=== PATIENT | female | born 1995 | race African-American/Black ===

== ENCOUNTER 2018-02-22 14:23 | Inpatient (IN) ==
[2018-02-22] MEDS ORDERED: Non-Formulary Drug (Nitrofurantoin Macrocrystal [Nitrofurantoin Macrocrystal] 100 MG) PO SCH (15:45)
[2018-02-22] MEDS ORDERED: Gentamicin/NS 80 mg Premix 100 ML IV.SIG SCH (16:00)
[2018-02-22] MEDS ORDERED: Acetaminophen 325 MG Tablet PO PRN (16:01)
[2018-02-22] MEDS ORDERED: Morphine Inj 4 MG/ML Vial IV.PUSH PRN (16:10)
--- NOTE | 2018-02-22 16:22 | P.HPOB ---
History of Present Illness Primary Care Physician: No Primary Care Physician Chief Complaint: Lower abdominal pain in vaginal bleeding for 2 days History of Present Illness: Patient is a 22-year-old white female at 16 weeks approximately who is referred from [place] [facility] for evaluation of fetus. Patient did not know she was until today when they did test and ultrasound and [place]. The ultrasound there showed a 16 week intrauterine with essentially no amniotic fluid, positive heart rate noted. The patient was seen in the day before for abdominal pain diagnosed with UTI given Macrobid and sent home. Her white count at that time was 20,000 and white blood cell count today was 17.9 with a left shift both times she states her bleeding waxes and wanes from just spotting to a little heavier than that spotting and heavier again. Her last menstrual period was 02/16/18 and she states these are regular. She has not been on control of any kind Weeks Gestation:: 16 Para: 0 : 1 Review of Systems Constitutional: Denies anorexia, Denies body ache(s), Denies chills, Denies daytime sleepiness, Denies excessive sweating, Denies fatigue, Denies fever(s), Denies headache(s), Denies increased appetite, Denies lack of energy, Denies malaise, Denies night sweats, Denies weakness, Denies weight gain, Denies weight loss, Denies other Cardiovascular: Denies bluish discoloration of hand/feet, Denies chest pain, Denies chest pain at rest, Denies chest pain with activity, Denies excessive sweating, Denies fainting, Denies fast heart rate, Denies foot swelling, Denies generalized swelling, Denies irregular heart rhythm, Denies leg pain with activity, Denies leg sores, Denies leg swelling, Denies lightheadedness, Denies radiating jaw, neck or arm pain, Denies rapid, pounding, or irregular heartbeat , Denies shortness of breath, Denies shortness of breath with activity, Denies shortness of breath when lying down, Denies shortness of breath causing sudden awakening, Denies slow heart rate, Denies other Respiratory: Denies change in phlegm color, Denies chest congestion, Denies cough, Denies coughing up blood, Denies excessive phlegm production, Denies pain on inspiration, Denies pain with cough, Denies shortness of breath, Denies shortness of breath with activity, Denies snoring, Denies stridor, Denies wheezing, Denies other Gastrointestinal: Reports abdominal pain, Denies belching, Denies black, tarry stools, Denies bloating, Denies bright, red blood in stools, Denies change in bowel habits, Denies constant urge to pass stool, Denies change in stools, Denies coffee ground vomit, Denies constipation, Denies cramping, Denies difficulty swallowing, Denies excessive passing of gas, Denies feeling full early, Denies heartburn, Denies incontinent of stools, Denies loose stools, Denies nausea, Denies pain with swallowing, Denies vomiting, Denies vomiting blood, Denies other Genitourinary: Reports abnormal vaginal bleeding, Denies abnormal periods, Denies absent period, Denies bleeding between periods, Denies blood in urine, Denies difficulty starting urination, Denies difficulty urinating, Denies dribbling after urination, Denies frequent nighttime urination, Denies genital itching, Denies genital lesions, Denies heavy periods, Denies hot flashes, Denies light periods, Denies nipple discharge, Denies painful intercourse, Denies painful periods, Denies painful urination, Denies pelvic pain, Denies prolapse symptoms, Denies sexual problems, Denies side pain, Denies urinary incontinence, Denies urinary urgency, Denies vaginal discharge, Denies vaginal dryness, Denies vaginal odor, Denies vaginal itching, Denies other Neurologic: Denies abnormal hearing, Denies abnormal movements, Denies abnormal speech, Denies abnormal walking, Denies behavioral changes, Denies burning sensations, Denies confusion, Denies dizziness, Denies fainting, Denies frequent falls, Denies headache(s), Denies lack of coordination, Denies localized weakness, Denies loss of vision, Denies memory loss, Denies numbness, Denies other visual disturbances, Denies radiating pain, Denies restless legs, Denies convulsions, Denies seizure-like activity, Denies sensory deficit, Denies tingling, Denies tingling/numbness/burning sensations, Denies tremor(s), Denies unsteadiness, Denies weakness, Denies other PMFSH - History History Provided By: Patient - Medical History Medical History: Medical History (Last Updated 02/22/18 @ 11:26 by Juany Ross RN) History of cardiac murmur (Acute) History of asthma (Acute) - Surgical History Surgical History: Surgical History (Last Updated 02/22/18 @ 11:26 by Juany Ross RN) No history of previous surgery - Family History Family History: Family History (Last Updated 02/22/18 @ 11:26 by Juany Ross RN) Other Family history of diabetes mellitus - Tobacco History Second Hand Smoke Exposure: No Smoking Status: Never smoker Tobacco Type: Cigarettes - Alcohol History How Often Do You Have a Drink Containing Alcohol: 2 to 4 times a month - Substance Use History Substance History: No History of Abuse - Travel History History of Recent Travel: No Recent Travel in the [place] Within the Last 8 Weeks: No Recent Travel Out of the Country Within the Last 8 Weeks: No Medications and Allergies Active Medications: Active Medications Acetaminophen (Tylenol) 650 mg PO Q4H PRN PRN Reason: PAIN SCALE 1 TO 5 Albuterol (Ventolin Hfa Inh) 2 puff INH Q4H PRN PRN Reason: WHEEZING/SOB Ampicillin Sodium (Ampicillin Inj) 2,000 mg IV.PUSH Q6H TOMAS Lactated Ringer's (Lr 1000 Ml Inj) 1,000 mls @ 100 mls/hr IV.CONT .Q10H TOMAS Gentamicin Sulfate/Sodium Chloride (Gentamicin/Ns 80 Mg Premix) 100 mls @ 200 mls/hr IV.SIG Q8H TOMAS Meclizine HCl (Antivert) 25 mg PO DAILY PRN PRN Reason: Dizziness Morphine Sulfate (Morphine Inj) 4 mg IV.PUSH Q4H PRN PRN Reason: ABDOMINAL PAIN Non-Formulary Medication (Nitrofurantoin Macrocrystal [Nitrofurantoin Macrocrystal]) 100 mg PO Q6H TOMAS Ondansetron HCl (Zofran Odt) 4 mg PO Q6H PRN PRN Reason: NAUSEA OR VOMITING Ondansetron HCl (Zofran Inj) 4 mg IV.PUSH Q6H PRN PRN Reason: NAUSEA OR VOMITING Sodium Chloride (Ns Flush) 2 ml IV.FLUSH BID TOMAS Sodium Chloride (Ns Flush) 2 ml IV.FLUSH PRN PRN PRN Reason: FLUSH AFTER USING IV ACCESS Sodium Chloride (Ns Flush) 2 ml IV.FLUSH BID TOMAS Sodium Chloride (Ns Flush) 2 ml IV.FLUSH PRN PRN PRN Reason: FLUSH AFTER USING IV ACCESS Allergies Allergy/AdvReac Type Severity Reaction Status Date / Time No Known Allergies Allergy Verified 02/21/18 15:07 Home Medications Medication Instructions Recorded Confirmed Type albuterol sulfate 2 puff INHALATION Q4-6H PRN 02/21/18 02/22/18 History meclizine 25 mg PO DAILY PRN 02/21/18 02/22/18 History Exam Vital signs: Vital Signs 02/22/18 15:01 02/22/18 15:04 Temperature 98.2 F Pulse Rate 99 H Respiratory Rate 19 Blood Pressure 133/83 - Constitutional no acute distress - Routine HEENT Exam Head: Present: normocephalic, atraumatic Eye: Present: PERRL - Routine Respiratory Exam Present: accessory muscle use, CTA bilaterally - Routine Cardiovascular Exam Present: RRR, S1, S2 - Routine Abdominal Exam Present: soft, tenderness Comments: Uterine fundus is between symphysis and umbilicus and is minimally tender to palpation - Routine Exam Comments: On pelvic exam there is bloody mucus at the introitus and on the vulva with a washed out appearance to the vagina but no obvious amniotic fluid seen just old blood no active bleeding seen but a moderate amount of old blood noted, too much blood to do an amnio sure The cervix is visualized and then palpated with my examining hand and she is a 1 cm allows 1 finger and through the cervix which is thick but open and could palpate the presenting part which is the head - Routine Neurological Exam Present: alert, oriented X3, CN II-XII intact Results - Imaging Bedside ultrasound done shows a single intrauterine in a cephalic presentation with measurements consistent with 16 weeks 1 day and 152 g. Positive cardiac motion noted. bladder was seen. I could not visualize kidneys. There is marked oligohydramnios only a very small amount of fluid seen. The placenta is anterior and grade 0 and low-lying Caprini VTE Risk Assessment Caprini VTE Risk Assessment: No/Low Risk (score <= 1) Caprini Risk Assessment Model: Point Value = 1 Point Value = 2 Point Value = 3 Point Value = 5 Age 41-60 Minor surgery BMI > 25 kg/m2 Swollen legs Varicose veins or History of unexplained or recurrent spontaneous Oral contraceptives or hormone replacement Sepsis (< 1 month) Serious lung disease, including pneumonia (< 1 month) Abnormal pulmonary function Acute myocardial infarction Congestive heart failure (< 1 month) History of inflammatory bowel disease Medical patient at bed rest Age 61-74 Arthroscopic surgery Major open surgery (> 45 min) Laparoscopic surgery (> 45 min) Malignancy Confined to bed (> 72 hours) Immobilizing plaster cast Central venous access Age >= 75 History of VTE Family history of VTE Factor V Leiden Prothrombin [id number] Lupus anticoagulant Anticardiolipin antibodies Elevated serum homocysteine Heparin-induced thrombocytopenia Other congenital or acquired thrombophilia Stroke (< 1 month) Elective arthroplasty Hip, pelvis, or leg fracture Acute spinal cord injury (< 1 month) Prophylaxis Regimen: Total Risk Factor Score Risk Level Prophylaxis Regimen 0-1 Low Early ambulation 2 Moderate Order ONE of the following: *Sequential Compression Device (SCD) *Heparin 5000 units SQ BID 3-4 Higher Order ONE of the following medications: *Heparin 5000 units SQ TID *Enoxaparin/Lovenox 40 mg SQ daily (WT < 150 kg, CrCl > 30 mL/min) *Enoxaparin/Lovenox 30 mg SQ daily (WT < 150 kg, CrCl > 10-29 mL/min) *Enoxaparin/Lovenox 30 mg SQ BID (WT < 150 kg, CrCl > 30 mL/min) AND/OR *Sequential Compression Device (SCD) 5 or more Highest Order ONE of the following medications: *Heparin 5000 units SQ TID (Preferred with Epidurals) *Enoxaparin/Lovenox 40 mg SQ daily (WT < 150 kg, CrCl > 30 mL/min) *Enoxaparin/Lovenox 30 mg SQ daily (WT < 150 kg, CrCl > 10-29 mL/min) *Enoxaparin/Lovenox 30 mg SQ BID (WT < 150 kg, CrCl > 30 mL/min) AND *Sequential Compression Device (SCD) Assessment and Plan - Diagnosis (1) 16 weeks gestation of Code(s): Z3A.16 - 16 weeks gestation of Status: Acute (2) Oligohydramnios Code(s): O41.00X0 - Oligohydramnios, unspecified trimester, not applicable or unspecified Status: Acute (3) Vaginal bleeding during Code(s): O46.90 - Antepartum hemorrhage, unspecified, unspecified trimester Status: Acute - Plan There is a 16 week intrauterine primiparous presents was with no care and did not even know she was yesterday and presents with an ultrasound finding of essentially no amniotic fluid around baby. Patient denies rupture the membranes are significant leakage that she does describe bleeding significantly over the last 2 days. On exam it she does have blood per vagina and it does look somewhat washed out but I cannot see any draining amniotic fluid. However is quite likely the patient has had PPROM and is beginning to basically miscarry her self with this pain and in bleeding. Plan to start her on IV antibiotics amp and gent watch her overnight see what happens she may well miscarry on her own tomorrow if she is the same probably get another ultrasound and discussed with service
[2018-02-22] MEDS ORDERED: Ampicillin Inj 500 MG Vial IV.PUSH SCH (17:00)
[2018-02-22 17:40] LABS: Amphetamine Urine With Conf Neg (Neg); Benzodiazepine Urine With Conf Neg (Neg)
[2018-02-22 17:57] LABS: Bacteria,Urine Many /hpf; Bilirubin,Urine Negative (Negative); Clarity,Urine Cloudy (Clear); Color,Urine Yellow (Yellw/Straw); Glucose,Urine (UA) Negative (Negative); Leukocyte Esterase,Urine Large (Negative); Mucus,Urine Few /lpf (Occasional); Nitrite,Urine Negative (Negative); Specific Gravity,Urine 1.013 (1.002-1.035); Squamous Epithelial Cell,Urine 2 /hpf (0-5)
--- NOTE | 2018-02-22 20:02 | XR ---
EXAM DATE: 02/22/2018 7:42 PM EDT AGE/SEX: 22 years / Female INDICATIONS: Central line placement. CLINICAL DATA: This is the patient's initial encounter. Patient reports that signs and symptoms have been present for 1 day and indicates a pain score of 0/10. MEDICAL/SURGICAL HISTORY: None. None. COMPARISON: No prior exams available for comparison. FINDINGS: A single AP view of the chest demonstrates the lungs to be symmetrically aerated without evidence of mass, infiltrate or effusion. The cardiomediastinal contours are unremarkable. Osseous structures a re intact. There is a right internal jugular central venous line with the tip projected over the sup erior vena cava. There is no pneumothorax. CONCLUSION: Right internal jugular central venous line with no pneumothorax. Electronically signed by: Demarco Vogel MD 02/22/2018 8:00 PM EDT
[2018-02-22 20:27] LABS: Baso % (Auto) 0.2 % (0.0-2.0); Eos # (Auto) 0.1 th/mm3 (0.0-0.4); Eos % (Auto) 0.3 % (0.0-4.0); Hematocrit 29.4 % (35.0-46.0); Hemoglobin 8.9 gm/dL (11.6-15.3); Lymph # (Auto) 2.4 th/mm3 (1.0-4.8); Lymph % (Auto) 12.5 % (9.0-44.0); Mean Corpuscular Hemoglobin 19.6 pg (27.0-34.0); Mean Corpuscular Volume 64.8 fL (80.0-100.0); Mean Platelet Volume 9.3 fL (7.0-11.0); Mono # (Auto) 0.9 th/mm3 (0.0-0.9); Mono % (Auto) 4.6 % (0.0-8.0); Neut # (Auto) 15.8 th/mm3 (1.8-7.7); Neut % (Auto) 82.4 % (16.0-70.0); Platelet Count 273 th/mm3 (150-450); Red Blood Count 4.53 mil/mm3 (4.00-5.30); Red Cell Distribution Width 18.4 % (11.6-17.2); White Blood Count 19.2 th/mm3 (4.0-11.0)
[2018-02-22 20:28] LABS: Mean Corpuscular HGB Conc 30.2 % (32.0-36.0)
[2018-02-22 20:49] LABS: Anion Gap 10 meq/L (5-15); Blood Urea Nitrogen 5 mg/dL (7-18); Calcium 8.5 mg/dL (8.5-10.1); Carbon Dioxide 22.3 meq/L (21.0-32.0); Chloride 107 meq/L (98-107); Glomerular Filtration Rate Greater Than 89 mL/min (>89); Glucose,Random 58 mg/dL (74-106); Potassium 3.4 meq/L (3.5-5.1); Sodium 139 meq/L (136-145)
[2018-02-23] MEDS ORDERED: Gentamicin/NS 80 mg Premix 100 ML IV.SIG SCH (04:00)
[2018-02-23] MEDS ORDERED: Oxytocin 30 Units/500ml Premix 30 UNITS/500 ML BAG ONE (04:47)
[2018-02-23] MEDS ORDERED: Acetaminophen 325 MG Tablet PO PRN ×3 (05:15→11:46)
[2018-02-23] MEDS ORDERED: Witch Hazel 50%/Glyderin 12.5% 40 Pad Jar RECTAL PRN ×2 (05:17→11:46)
[2018-02-23] MEDS ORDERED: Zolpidem Tartrate 5 MG Tablet PO PRN ×2 (05:17→21:00)
[2018-02-23] MEDS ORDERED: Aluminum/Magnesium/Simethacone Susp 30 ML UDC PO PRN (05:17)
[2018-02-23] MEDS ORDERED: Benzocaine 20% Top Spray 60 ML Can TOPICAL PRN ×2 (05:17→11:46)
[2018-02-23] MEDS ORDERED: Senna/Docusate Sodium 8.6/50 MG Tablet PO PRN (05:30)
[2018-02-23] MEDS ORDERED: miSOPROStol 200 MCG Tablet ONE (06:02)
--- NOTE | 2018-02-23 06:15 | P.OBGPN ---
This 16 week intrauterine with PPROM and oligohydramnios labored spontaneously during her hospital course and delivered a nonviable 16 week size fetus [120 gm] at 4:40 AM today. The placenta remains in situ with clamp on the cord. She is receiving IV Pitocin and vaginal Cytotec , I just placed 400 mg of Cytotec and will continue this every 4 hours until delivery. The placenta by palpation is sitting right at the cervical loss but was unreachable by hand
[2018-02-23] MEDS: Oxytocin 30 Units/500ml Premix 30 UNITS/500 ML BAG IV.CONT PRN ×2 (06:30→08:27)
[2018-02-23] MEDS ORDERED: miSOPROStol 200 MCG Tablet VAGINAL SCH (08:00)
[2018-02-23] MEDS: fentaNYL Citrate Inj 100 MCG/2 ML Ampul IV.PUSH PRN ×2 (08:14→09:01)
[2018-02-23 09:58] LABS: Baso # (Auto) 0.1 th/mm3 (0.0-0.2); Baso % (Auto) 0.4 % (0.0-2.0); Eos # (Auto) 0.1 th/mm3 (0.0-0.4); Eos % (Auto) 0.3 % (0.0-4.0); Hematocrit 26.7 % (35.0-46.0); Hemoglobin 8.3 gm/dL (11.6-15.3); Lymph # (Auto) 1.9 th/mm3 (1.0-4.8); Lymph % (Auto) 10.8 % (9.0-44.0); Mean Corpuscular Hemoglobin 20.2 pg (27.0-34.0); Mean Platelet Volume 9.1 fL (7.0-11.0); Mono # (Auto) 0.7 th/mm3 (0.0-0.9); Mono % (Auto) 3.7 % (0.0-8.0); Neut # (Auto) 15.3 th/mm3 (1.8-7.7); Neut % (Auto) 84.8 % (16.0-70.0); Platelet Count 149 th/mm3 (150-450); Red Cell Distribution Width 18.9 % (11.6-17.2)
[2018-02-23] MEDS ORDERED: miSOPROStol 200 MCG Tablet PO SCH (11:00)
[2018-02-23] MEDS ORDERED: fentaNYL Citrate Inj 100 MCG/2 ML Ampul IV.PUSH ONE (11:00)
[2018-02-23] MEDS ORDERED: Naloxone Inj 0.4 MG/ML Vial IV.PUSH PRN (11:46)
[2018-02-23] MEDS ORDERED: Bisacodyl 10 MG Supp RECTAL PRN (11:46)
[2018-02-23] MEDS ORDERED: Oxytocin 30 Units/500ml Premix 30 UNITS/500 ML BAG IV.CONT PRN (11:46)
[2018-02-23] MEDS ORDERED: Measles/Mumps/Rubella Vaccine Inj 0.5 ML Vial SQ ONE (16:00)
[2018-02-23] MEDS ORDERED: Diphtheria/Tetanus/Pertussis Vaccine Inj 0.5 ML Syringe IM ONE (16:00)
--- NOTE | 2018-02-23 16:27 | P.OBGPN ---
S: Patient seen and examined this afternoon. Placenta was delivered spontaneously at 11:40 AM. Membranes were fully intact. Patient confirmed uterine cramping, vaginal bleeding was minimal s/p delivery of placenta. This afternoon, bleeding had decreased significantly. Patient was laying comfortably and was agreeable to go home. She is agreed to follow-up with her primary care provider in [place]. O: BP: 130/94, Pulse: 77, RR: 18 Abdomen: Soft, ND, fundus Firm, below the umbilicus Genitalia: Normal Exterior appearance, minimal bleeding appreciated. A/P: 22-year-old female at 16 weeks delivered a nonviable fetus spontaneously yesterday. Placenta delivered this morning at 11:40 AM. Patient is clinically stable. Minimal vaginal bleeding this afternoon. Patient is agreeable to go home and to continue follow-up with her primary care provider in [place]. She is advised to have pelvic rest for the next 6 weeks. She is advised bed rest/minimal activity/no school for the next week. Tylenol Motrin prescribed for pain as needed. Case discussed with Dr. Wesley
[2018-02-23 17:33] VITALS: BP 124/56; PULSE 90; RESP 17; TEMP 99.2
[2018-02-23] MEDS ORDERED: Senna/Docusate Sodium 8.6/50 MG Tablet PO SCH (21:00)
[2018-02-25 19:54] LABS: Dil Russell Viper Venom Conf ( ND (NEGATIVE); Dil Russell Viper Venom Time M ND (CORRECTED); Lupus Anticoagulant PTT Screen 35 seconds (< OR = 40)
[2018-02-25 23:51] LABS: Parvovirus B19 IgG 0.2; Parvovirus B19 IgM 0.4
[2018-02-27 08:30] LABS: Rubella IgG 3.63 (Immune)
== END 2018-02-23 17:43 | disposition home or self-care (01) ==
LOC: H2E 14:23 → HOBED 14:23 → H2E 16:15
PROVIDERS: ADMIT Obstetrics & Gynecology Maternal & Fetal Medicine; ATTEND Obstetrics & Gynecology Maternal & Fetal Medicine